=== PATIENT | female | born 1995 | race Caucasian/White ===

== ENCOUNTER 2020-08-07 15:30 | Emergency (ER) | payer OTHER ==
[2020-08-07 15:56] VITALS: BP 150/85; PULSE 76; BMI 46.0
== END 2020-08-07 18:10 | disposition home or self-care (01) ==
LOC: JERFT 15:30
DX: M79.671 Pain in right foot (principal); R60.0 Localized edema
CPT/HCPCS: 73610-TC-RT-FY; 73630-TC-RT-FY; 93971-TC; 99284-25

== ENCOUNTER 2021-04-27 21:36 | Emergency (ER) | payer OTHER ==
[2021-04-27 21:48] VITALS: TEMP 98.5; BMI 46.0
[2021-04-28] MEDS ORDERED: IBUPROFEN 600 MG TABLET (FP) PO ONE ×2 (01:06→01:14)
[2021-04-28 01:41] VITALS: BP 152/81; PULSE 66
== END 2021-04-28 01:42 | disposition home or self-care (01) ==
LOC: JER 21:36
DX: M79.661 Pain in right lower leg (principal); M25.571 Pain in right ankle and joints of right foot
CPT/HCPCS: 73610-TC-RT-FY; 73630-TC-RT-FY; 93971-TC; 99284-25

== ENCOUNTER 2021-11-22 21:44 | Emergency (ER) | payer OTHER ==
[2021-11-22 21:50] VITALS: BP 147/86; PULSE 86; TEMP 98.4; BMI 54.6
[2021-11-22] MEDS ORDERED: IBUPROFEN 600 MG TABLET (FP) PO ONE ×2 (23:21→23:22)
== END 2021-11-22 23:41 | disposition home or self-care (01) ==
LOC: JERFT 21:44
DX: L02.415 Cutaneous abscess of right lower limb (principal)
CPT/HCPCS: 99283-25

== ENCOUNTER 2023-03-10 15:46 | Emergency (ER) | payer OTHER ==
[2023-03-10 16:05] VITALS: BP 152/63; PULSE 60; RESP 18; TEMP 98.2; BMI 49.6
== END 2023-03-10 18:11 | disposition home or self-care (01) ==
LOC: JERFT 15:46
DX: H92.01 Otalgia, right ear (principal); H61.21 Impacted cerumen, right ear; H65.01 Acute serous otitis media, right ear
CPT/HCPCS: 99283-25

== ENCOUNTER 2024-06-16 04:48 | Emergency (ER) | payer OTHER ==
[2024-06-16 05:07] VITALS: RESP 18; BMI 49.6
[2024-06-16] MEDS ORDERED: DIPHTH,PERTUSS(ACELL),TET 0.5 ML DISP.SYRIN IM ONE ×2 (05:17→05:18)
[2024-06-16] MEDS: DIPHTH,PERTUSS(ACELL),TET 0.5 ML DISP.SYRIN IM ONE (05:32)
[2024-06-16 07:06] VITALS: TEMP 98.3
[2024-06-16 07:54] LABS: HEMATOCRIT 42.8 % (32.4-45.2); HEMOGLOBIN 14.3 GM/dL (10.7-15.3); MCH 26.8 pg (25.7-33.7); MCHC 33.4 g/dl (32.0-36.0); MEAN CELL VOLUME 80.2 fl (80-96); MEAN PLT VOLUME 8.9 fl (7.5-11.1); PLATELET COUNT 323 10^3/uL (134-434); RBC 5.34 M/mm3 (3.60-5.2); RDW 14.5 % (11.6-15.6); WHITE BLOOD COUNT 11.1 K/mm3 (4.0-10.0)
[2024-06-16 08:07] LABS: CHLORIDE 106 mmol/L (98-107); POTASSIUM 4.2 mmol/L (3.5-5.1); SODIUM 139 mmol/L (136-145)
[2024-06-16 08:09] LABS: ANION GAP 8 mmol/L (4-13); BLOOD UREA NITROGEN 8.8 mg/dL (7-18); CALCIUM 9.2 mg/dL (8.5-10.1); CO2 25 mmol/L (21-32); GLUCOSE,RANDOM 87 mg/dL (74-106)
[2024-06-16 08:12] LABS: CREATININE 0.7 mg/dL (0.55-1.3); SGOT/AST 16 U/L (15-37); SGPT/ALT 36 U/L (13-61)
[2024-06-16 08:14] LABS: BILIRUBIN,TOTAL 0.4 mg/dL (0.2-1); TOT PROT 7.9 g/dl (6.4-8.2)
[2024-06-16 08:15] LABS: ALK PHOS 73 U/L (45-117)
[2024-06-16 09:13] VITALS: BP 152/83; PULSE 98
== END 2024-06-16 09:16 | disposition home or self-care (01) ==
LOC: JER 04:48
PROC: 0XQ9XZZ Repair Left Upper Arm, External Approach (ICD-10-PCS; principal; 2024-06-16)
PROC: 3E0234Z Introduction of Serum, Toxoid and Vaccine into Muscle, Percutaneous Approach (ICD-10-PCS; 2024-06-16)
DX: S41.112A Laceration without foreign body of left upper arm, initial encounter (principal); X78.8XXA Intentional self-harm by other sharp object, initial encounter; Z23 Encounter for immunization
CPT/HCPCS: 12002; 36415; 80053; 80307; 84702; 85025; 90471; 90715; 99284-25